=== PATIENT | male | born 1960 | race Caucasian/White ===

== ENCOUNTER 2019-11-07 12:52 | Emergency (ER) | payer OTHER ==
[2019-11-07] MEDS ORDERED: TETANUS & DIPHTHERIA TOX,ADULT 0.5 ML VIAL ONE (13:13)
[2019-11-07] MEDS ORDERED: LIDOCAINE 1% MPF 5 ML VIAL ONE (13:13)
--- NOTE | 2019-11-07 14:03 | ER ---
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 Bleeding ll1 controlled. Laceration to chin. Coronavirus screen: Proceed with normal triage. Patient denies a cough. Patient denies shortness of breath or difficulty breathing. Patient denies measured and/or subjective temperature greater than 100.4F prior to today's visit. Patient denies travel on a cruise ship or to a country the [facility] currently lists as an affected area. Patient denies contact with known and/or suspected case of COVID-19. Ebola Screen: Patient denies travel to an Ebola-affected area in the 21 days before illness onset. Complicating Factors: There are no complicating factors for this patient. Initial Sepsis Screen: Does the patient meet any 2 criteria? No. Patient's initial sepsis screen is negative. Does the patient have a suspected source of infection? No. Patient's initial sepsis screen is negative. Risk Assessment: Do you want to hurt yourself or someone else? Patient reports no desire to harm self or others. Onset of symptoms was November 07, 2019. 13:00 Method Of Arrival: Ambulatory ll1 13:00 Acuity: JAVIER 4 ll1 Historical: - Allergies: 13:02 No Known Allergies; ll1 - PMHx: 13:02 Hypertension; ll1 - PSHx: 13:02 None; ll1 - Immunization history:: Last tetanus immunization: > 10 years ago. - Social history:: Patient/guardian denies using alcohol, street drugs, tobacco products. Screenin:00 Abuse screen: Denies threats or abuse. Nutritional screening: No deficits noted. Tuberculosis screening: No symptoms or risk factors identified. Assessment: 13:15 General: Appears in no apparent distress. uncomfortable, Behavior is calm, cooperative. Pain: Denies pain. Neuro: Level of Consciousness is awake, alert, Oriented to person, place, time, situation. Cardiovascular: Heart tones S1 S2 present. Respiratory: Airway is patent Respiratory effort is even, unlabored, Respiratory pattern is regular, symmetrical. GI: No signs and/or symptoms were reported involving the gastrointestinal system. : No signs and/or symptoms were reported regarding the genitourinary system. EENT: No signs and/or symptoms were reported regarding the EENT system. Derm: Skin is intact, is healthy with good turgor. Musculoskeletal: No signs and/or symptoms reported regarding the musculoskeletal system. Injury Description: Laceration is clean, 0.5 to 2.5 cm long, bleeding moderately, was sustained 30-60 minutes ago. Vital Signs: 13:00 BP 164 / 107; Pulse 83; Resp 16; Temp 97.6; Pulse Ox 96% ; Pain 2/10; ll1 ED Course: 12:54 Patient arrived in ED. am2 13:00 Hossein Ojeda NP is PHCP. pm1 13:00 Jewel Burrell MD is Attending Physician. pm1 13:02 Triage completed. 1 13:02 Arm band placed on Patient placed in an exam room, on a stretcher. 1 13:12 Lois Padilla, RN is Primary Nurse. 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 Exp: ll1 07/29/2021. Lot #: [id number]. } Route: IM; Site: right deltoid; 14:00 Follow up: Response: No adverse reaction 13:55 Drug: Lidocaine (1 %) 5 ml {Note: BARBARA Catalan used for laceration.} Volume: 5 ml; Route: Infiltration; Outcome: 14:02 Discharge ordered by . pm1 14:20 Discharged to home ambulatory. 14:20 Condition: good 14:20 Discharge instructions given to patient, Instructed on discharge instructions, follow up and referral plans. medication usage, wound care, Demonstrated understanding of instructions, follow-up care, medications, wound care, Prescriptions given X 1. 14:30 Patient left the ED. Signatures: Hossein Ojeda NP RESEARCH INTERN pm1 Janene Walton am2 Lois Padilla RN HARIKA Saundra Horner RN RN [facility]
--- NOTE | 2019-11-07 14:03 | EDPHYS ---
Physician Documentation [facility] Name: Bakari Vazquez Age: 58 yrs Sex: Male : 1960 Arrival Date: 11/07/2019 Time: 12:54 Bed 20 Private MD: ED Physician Jewel Burrell HPI: 11/06 13:05 This 58 yrs old Male presents to ER via Ambulatory with complaints of pm1 Laceration To Chin. 13:05 The patient has a laceration related to: working, occurred outdoors, and there are no pm1 complicating factors. Hit his chin on trailer hitch. The laceration(s) is(are) located on the chin. Onset: The symptoms/episode began/occurred just prior to arrival. Associated signs and symptoms: Pertinent negatives: deformity, heavy bleeding, loss of consciousness, suspected foreign body. The patient has not experienced similar symptoms in the past. Historical: - Allergies: 13:02 No Known Allergies; ll1 - PMHx: 13:02 Hypertension; ll1 - PSHx: 13:02 None; ll1 - Immunization history:: Last tetanus immunization: > 10 years ago. - Social history:: Patient/guardian denies using alcohol, street drugs, tobacco products. ROS: 13:05 Constitutional: Negative for fever, chills, and weight loss, Neck: Negative for injury, pm1 pain, and swelling, Neuro: Negative for headache, weakness, numbness, tingling, and seizure. 13:05 Cardiovascular: Negative for chest pain, palpitations, and edema, Respiratory: Negative for shortness of breath, cough, wheezing, and pleuritic chest pain, Abdomen/GI: Negative for abdominal pain, nausea, vomiting, diarrhea, and constipation, Back: Negative for injury and pain, MS/Extremity: Negative for injury and deformity. 13:05 Skin: Positive for laceration(s), of the chin. Exam: 13:05 Constitutional: This is a well developed, well nourished patient who is awake, alert, pm1 and in no acute distress. Neck: Trachea midline, no thyromegaly or masses palpated, and no cervical lymphadenopathy. Supple, full range of motion without nuchal rigidity, or vertebral point tenderness. No Meningismus. 13:05 MS/ Extremity: Pulses equal, no cyanosis. Neurovascular intact. Full, normal range of motion. 13:05 Head/face: Noted is no obvious of injury or deformity except a laceration(s), of the chin. 13:05 Cardiovascular: Exam negative for acute changes, Rate: normal, Pulses: no pulse deficits are appreciated. 13:05 Respiratory: Exam negative for acute changes, respiratory distress, shortness of breath. 13:05 Skin: injury, laceration(s), the wound is approximately 3 cm(s), with a depth of 1 cm(s), of the chin. 13:05 Neuro: Exam negative for acute changes, Orientation: is normal, Mentation: is normal, Motor: is normal, moves all fours, Gait: is steady, at a normal pace, without difficulty. Vital Signs: 13:00 BP 164 / 107; Pulse 83; Resp 16; Temp 97.6; Pulse Ox 96% ; Pain 2/10; ll1 Laceration: 13:58 Wound Repair of 3cm ( 1.2in ) subcutaneous laceration to chin. Irregularly shaped.. pm1 Distal neuro/vascular/tendon intact. Anesthesia: Local anesthetic administered with 3 mls of 1% lidocaine. Wound prep: Extensive cleansing with hibiclenz by me, Wound irrigation with saline by me, Wound explored extensively, Copious irrigation. Skin closed with 8 5-0 Prolene using 7 simple sutures with one purse string suture. Dressed with Neosporin. Patient tolerated well. MDM: 13:00 Patient medically screened. pm1 14:00 Data reviewed: vital signs. Data interpreted: Pulse oximetry: on room air is 96 %. pm1 Interpretation: normal. Counseling: I had a detailed discussion with the patient and/or guardian regarding: the historical points, exam findings, and any diagnostic results supporting the discharge/admit diagnosis, the need for outpatient follow up, suture removal in 4-5 days, to return to the emergency department if symptoms worsen or persist or if there are any questions or concerns that arise at home. 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 Exp: ll1 07/29/2021. Lot #: [id number]. } Route: IM; Site: right deltoid; 14:00 Follow up: Response: No adverse reaction ah 13:55 Drug: Lidocaine (1 %) 5 ml {Note: BARBARA Catalan used for laceration.} Volume: 5 ml; ah Route: Infiltration; Disposition: 11/07 10:02 Co-signature as Attending Physician, Jewel Burrell MD I agree with the assessment and [facility] plan of care. Disposition: 11/07/19 14:02 Discharged to Home. Impression: Laceration without foreign body of unspecified part of head - chin. - Condition is Stable. - Discharge Instructions: Facial Laceration. - Prescriptions for Keflex 500 mg Oral Capsule - take 1 capsule by ORAL route every 12 hours for 10 days; 20 capsule. - Medication Reconciliation Form, Thank You Letter, Antibiotic Education, Prescription Opioid Use form. - Follow up: Emergency Department; When: As needed; Reason: Worsening of condition. Follow up: Private Physician; When: Suture removal in 4-5 days; Reason: Staple/Suture removal. - Problem is new. - Symptoms have improved. Signatures: Jewel Burrell MD MD cha Marinas, Patrick, NP SPUD GRADER pm1 Lois Padilla, RN RN Saundra Horner RN RN ll1 Corrections: (The following items were deleted from the chart) 11/06 14:30 14:02 11/07/2019 14:02 Discharged to Home. Impression: Laceration without foreign body ah of unspecified part of head - chin. Condition is Stable. Forms are Medication Reconciliation Form, Thank You Letter, Antibiotic Education, Prescription Opioid Use. Follow up: Emergency Department; When: As needed; Reason: Worsening of condition. Follow up: Private Physician; When: Suture removal in 4-5 days; Reason: Staple/Suture removal. Problem is new. Symptoms have improved. pm1
[2019-11-07 14:36] VITALS: BP 164/107; TEMP 97.6; O2SAT 96
== END 2019-11-07 14:30 | disposition home or self-care (01) ==
LOC: ER 12:52
PROC: 0JQ10ZZ Repair Face Subcutaneous Tissue and Fascia, Open Approach (ICD-10-PCS; principal; 2019-11-07)
DX: S01.81XA Laceration without foreign body of other part of head, initial encounter (principal); W26.8XXA Contact with other sharp object(s), not elsewhere classified, initial encounter; Y93.89 Activity, other specified; Y92.89 Other specified places as the place of occurrence of the external cause; Z23 Encounter for immunization; I10 Essential (primary) hypertension
CPT/HCPCS: 90471; 90714; 99283

== ENCOUNTER 2019-11-12 06:01 | Emergency (ER) | payer OTHER ==
--- NOTE | 2019-11-12 06:29 | ER ---
Nurse's Notes [facility] Name: Bakari Vazquez Age: 58 yrs Sex: Male : 1960 Arrival Date: 11/12/2019 Time: 06:03 Bed 5 Private MD: Diagnosis: Encounter for removal of sutures Presentation: 11/11 06:08 Chief complaint: Patient states: for suture removal. Coronavirus screen: Proceed with rv normal triage. Ebola Screen: No symptoms or risks identified at this time. Initial Sepsis Screen: Does the patient meet any 2 criteria? No. Patient's initial sepsis screen is negative. Does the patient have a suspected source of infection? No. Patient's initial sepsis screen is negative. Risk Assessment: Do you want to hurt yourself or someone else? Patient reports no desire to harm self or others. Onset of symptoms is unknown. 06:08 Method Of Arrival: Ambulatory rv 06:08 Acuity: JAVIER 5 rv Triage Assessment: 06:10 General: Appears in no apparent distress. Behavior is calm, cooperative. Pain: Denies rv pain. EENT: No signs and/or symptoms were reported regarding the EENT system. Neuro: Level of Consciousness is awake, alert, obeys commands, Oriented to person, place, time, situation. Cardiovascular: Patient's skin is warm and dry. Respiratory: Airway is patent. Derm: Skin is intact, Wound noted Other: appears to be healed on the outside. no discharge or redness noted. Historical: - Allergies: 06:10 No Known Allergies; rv - PMHx: 06:10 Hypertension; rv - PSHx: 06:10 None; rv - Immunization history:: Adult Immunizations up to date. - Social history:: Smoking status: Patient denies any tobacco usage or history of. Screenin:12 Abuse screen: Denies threats or abuse. Denies injuries from another. Nutritional rv screening: No deficits noted. Tuberculosis screening: No symptoms or risk factors identified. Fall Risk None identified. Vital Signs: 06:11 BP 138 / 84; Pulse 50; Resp 16; Temp 98.4; Pulse Ox 99% on R/A; rv ED Course: 06:03 Patient arrived in ED. cl3 06:06 Juve Vera RN is Primary Nurse. rv 06:09 Triage completed. rv 06:11 Arm band placed on Patient placed Patient notified of wait time. rv 06:12 Patient has correct armband on for positive identification. Pulse ox on. NIBP on. rv 06:13 Jewel Cordova PA is PHCP. cp 06:13 Chavez Blevins MD is Attending Physician. cp 06:33 No provider procedures requiring assistance completed. Patient did not have IV access rv during this emergency room visit. Administered Medications: No medications were administered Outcome: 06:29 Discharge ordered by . cp 06:33 Discharged to home ambulatory. rv 06:33 Condition: good 06:33 Discharge instructions given to patient, Instructed on discharge instructions, follow up and referral plans. Demonstrated understanding of instructions, follow-up care. 06:34 Patient left the ED. rv Signatures: Jewel Cordova PA PA cp Vicente, Ronaldo, RN RN Antoni Whitaker cl3
--- NOTE | 2019-11-12 06:29 | EDPHYS ---
Physician Documentation [facility] Name: Bakari Vazquez Age: 58 yrs Sex: Male : 1960 Arrival Date: 11/12/2019 Time: 06:03 Bed 5 Private MD: ED Physician Chavez Blevins HPI: 11/11 06:26 This 58 yrs old Male presents to ER via Ambulatory with complaints of Suture cp Removal. 06:26 The patient has sutures on the chin. Previous treatment: the care was rendered at [facility], Treatment type: The patient's original treatment included sutures. Sutures/chavez progress: The patient has no c/o's. The wound is well-healing with no redness, swelling, discharge, or dehiscence reported. Historical: - Allergies: 06:10 No Known Allergies; rv - PMHx: 06:10 Hypertension; rv - PSHx: 06:10 None; rv - Immunization history:: Adult Immunizations up to date. - Social history:: Smoking status: Patient denies any tobacco usage or history of. ROS: 06:27 Skin: Positive for laceration(s), of the chin. cp 06:27 All other systems are negative. Exam: 06:28 Constitutional: The patient appears in no acute distress, alert, awake, comfortable, cp non-toxic, well developed, well nourished. 06:28 Skin: Wound recheck: Suture laceration closure: the wound is healing well, the edges are well approximated, no evidence of dehiscence, no drainage, no erythema, no swelling. Vital Signs: 06:11 BP 138 / 84; Pulse 50; Resp 16; Temp 98.4; Pulse Ox 99% on R/A; rv MDM: 06:26 Patient medically screened. cp 06:28 Data reviewed: vital signs, nurses notes, and as a result, I will discharge patient. cp Administered Medications: No medications were administered Disposition: 06:35 Chart complete. cp 11:35 Co-signature as Attending Physician, Chavez Blevins MD I agree with the assessment and kdr plan of care. Disposition: 11/12/19 06:29 Discharged to Home. Impression: Encounter for removal of sutures. - Condition is Stable. - Discharge Instructions: Suture Removal, Care After, Wound Closure Removal. - Medication Reconciliation Form, Thank You Letter, Antibiotic Education, Prescription Opioid Use form. - Follow up: Private Physician; When: As needed; Reason: Worsening of condition. - Problem is new. - Symptoms have improved. Signatures: Chavez Blevins MD MD kdr Jewel Cordova PA PA cp Juve Vera RN RN rv Corrections: (The following items were deleted from the chart) 06:33 06:26 Dressing - Wound ordered. cp rv 06:34 06:29 11/12/2019 06:29 Discharged to Home. Impression: Encounter for removal of rv sutures. Condition is Stable. Forms are Medication Reconciliation Form, Thank You Letter, Antibiotic Education, Prescription Opioid Use. Follow up: Private Physician; When: As needed; Reason: Worsening of condition. Problem is new. Symptoms have improved. cp
[2019-11-12 06:52] VITALS: BP 138/84; TEMP 98.4; O2SAT 99
== END 2019-11-12 06:34 | disposition home or self-care (01) ==
LOC: ER 06:01
DX: Z48.02 Encounter for removal of sutures (principal)
CPT/HCPCS: 99283